=== PATIENT | female | born 2000 | race American Indian/Alaskan Native ===

== ENCOUNTER 2021-01-19 00:05 | Emergency (ER) | payer SELFPAY ==
[2021-01-19 00:13] VITALS: BP 114/74
--- NOTE | 2021-01-19 05:03 | Emergency Department Report ---
ED General Adult HPI - General Chief complaint: Chest Pain Stated complaint: CHEST PAIN/SORE THROAT/SWEATING Time Seen by Provider: 01/19/21 04:43 Source: patient Mode of arrival: Ambulatory Limitations: No Limitations - History of Present Illness Initial comments: 20-year-old female patient presents to the emergency department with complaints of chest pain, shortness of breath, night sweats, myalgias, and sore throat for 2 days. Took [id number] Tylenol and Advil with limited relief. No known sick contacts. No current steroid or antibiotic use. No recent travel. Patient has never been vaccinated. Denies fever, chills, ear pain, congestion, cough, wheezing, vomiting, diarrhea, rash, neck stiffness, headache. Denies all other complaints at this time. Severity scale (0 -10): 3 - Related Data Allergies Allergy/AdvReac Type Severity Reaction Status Date / Time No Known Allergies Allergy Unverified 01/19/21 00:13 ED Review of Systems ROS: Stated complaint: CHEST PAIN/SORE THROAT/SWEATING Other details as noted in HPI Other: GENERAL: Negative for fever, chills, weight change, anorexia, fatigue. ENT: Positive for sore throat. CARDIOVASCULAR: Positive for chest pain. PULMONARY: Positive shortness of breath. GASTROINTESTINAL: Negative for abdominal pain, nausea, vomiting, diarrhea, constipation. MUSCULOSKELETAL: Positive for myalgias. NEUROLOGICAL: Negative for headache, seizure, syncope, paresthesias, weakness. INTEGUMENTARY: Positive for diaphoresis. HEMATOLOGICAL: Negative for hemoptysis, hematemesis, hematochezia, hematuria. PSYCHIATRIC: Negative for hallucinations, suicidal ideation, homicidal ideation, anxiety, depression. ED Past Medical Hx - Past Medical History Previous Medical History?: No - Surgical History Past Surgical History?: No ED Physical Exam - General Limitations: No Limitations - Other Other exam information: General: Awake and alert. No acute distress. Head: Atraumatic, normocephalic. Eyes: EOMI. Pupils are equal and round. Normal sclera and conjunctiva. ENT: Oral mucosa is moist. Normal pharyngeal exam. Normal otoscopic exam. Neck: Supple. No lymphadenopathy. Pulmonary: No respiratory distress. Clear to auscultation bilaterally. Cardiac: Regular rate and rhythm. Pulses are palpable and equal bilaterally. No lower extremity cyanosis or edema. Skin: Warm and dry. No rashes. Abdomen: Soft, non-tender, non-protuberant. No guarding, rigidity, or rebound. Bowel sounds are normal. No organomegaly or masses noted. Back: Normal alignment. No CVA tenderness. Extremities: Symmetrical. Full range of motion intact. Neurological: Alert and oriented, appropriately interactive, no focal deficits. Psych: Cooperative. Appropriate mood and affect. Speech is evenly metered. Thoughts are logically construed. ED Course Vital Signs 01/19/21 00:12 Temperature 98.2 F Pulse Rate 96 H Respiratory 19 Rate Blood Pressure 114/74 [Right] O2 Sat by Pulse 100 Oximetry ED Medical Decision Making - EKG Data 01/19/21 06:58 EKG shows normal sinus rhythm with a ventricular rate of 86 bpm. Normal axis. Normal [place] interval. Normal QT interval. Good R wave progression. No ST segment changes. - Medical Decision Making Differential diagnosis including but not limited to: pneumonia, tuberculosis, p ertussis, pericarditis, pericardial effusion/cardiac tamponade, viral upper respiratory infection Patient presents to the emergency department with signs and/or symptoms that arise low risk clinical suspicion for pulmonary embolism. The patient has none of the following clinical criteria: age >50, heart rate >100, room air O2 saturation <94%, history of DVT/PE, recent trauma/surgery, hemoptysis, exogenous estrogen, or signs/symptoms of DVT. As a result, this patient has very low probability of pulmonary embolism and further testing is not indicated. On reevaluation, patient remains stable. She is resting comfortably. No hypoxia, no respiratory distress. EKG without acute injury pattern. Chest x- ray is negative. COVID-19 testing is currently unavailable at this facility. Rapid flu testing is not clinically indicated due to onset of symptoms >48 hours earlier. History and exam findings suggestive of viral illness. No clinical indication for further diagnostic work-up on an emergent basis at this time. Patient will be discharged home with instructions for symptomatic treatment and referred to primary care provider for close patient follow-up. Patient expressed understanding and is agreeable to plan of care. Disease transmission precautions discussed. Strict return precautions provided. Repeat exam is unremarkable and benign. History, exam, diagnostic testing, and c urrent condition do not suggest worrisome pathology to warrant further testing, continued ED treatment, admission, or surgical evaluation at this point. Given the low probability of a significant medical illness, it would be more likely to result in harm than benefit to perform further testing at this stage. Discussed findings, presumptive diagnosis, need for follow-up and specific signs/symptoms that should prompt immediate return to the emergency department. Instructions were explained in detail to the patient in addition to giving written discharge information. Patient expressed understanding and was given the opportunity to ask questions, all of which were satisfactorily answered prior to discharge home. Critical care attestation.: If time is entered above; I have spent that time in minutes in the direct care of this critically ill patient, excluding procedure time. ED Disposition Clinical Impression: Viral upper respiratory tract infection with cough Disposition: DC- TO HOME OR SELFCARE Is pt being admited?: No Does the pt Need Aspirin: No Condition: Stable Instructions: Viral Respiratory Infection Additional Instructions: Take Tylenol every 4 hours and Motrin every 8 hours as needed for pain. Use [id number] cough suppressants as needed. Honey is an excellent natural cough suppressant. Rest. Drink plenty of fluids. Wash hands frequently to prevent disease transmission. Do not share food or drinks with others. Follow-up with primary care provider this week. Call today to schedule an appointment. See referral information below. Return to the emergency department immediately for new or worsening symptoms. Referrals: CRYSTAL SALES MD [Staff Physician] - 3-5 Days [facility] [Provider Group] - 3-5 Days Forms: Work/School Release Form(ED) Time of Disposition: 07:00
--- NOTE | 2021-01-19 05:54 | XRay Report ---
. XR chest routine 2V INDICATION / CLINICAL INFORMATION: chest pain COMPARISON: None available. FINDINGS: SUPPORT DEVICES: None. HEART / MEDIASTINUM: No significant abnormality. LUNGS / PLEURA: Lungs are clear. Costophrenic sulci are sharp. No pneumothorax. ADDITIONAL FINDINGS: No significant additional findings. IMPRESSION: 1. No acute findings. Signer Name: Lai Jimenez MD Signed: 01/19/2021 5:50 AM Workstation Name: [id number]
--- NOTE | 2021-01-23 17:28 | Electrocardiograph Report ---
[facility] Test Date: 2021-01-19 Test Time: 06:52:56 Pat Name: DEANDRA WINN Department: Room: Gender: F Gym Teacher: TRUDI : 2000 Requested By: CASPER ESTRADA III Order Number: [id number] Reading MD: Justin Carmichael Measurements Intervals [place] Rate: 86 P: 78 FL: 110 QRS: 87 QRSD: 83 T: 2 QT: 348 QTc: 417 Interpretive Statements Sinus rhythm Right atrial enlargement No previous ECG available for comparison Electronically Signed On 01-23-2021 17:28:27 EDT by Justin Carmichael
== END 2021-01-19 07:17 | disposition home or self-care (01) ==
LOC: ED 00:05
DX: J06.9 Acute upper respiratory infection, unspecified (principal)
CPT/HCPCS: 71046; 93005

== ENCOUNTER 2021-01-22 00:12 | Emergency (ER) | payer SELFPAY ==
[2021-01-22 00:38] VITALS: BP 120/59
== END 2021-01-22 01:10 ==
LOC: ED 00:12
DX: F41.0 Panic disorder [episodic paroxysmal anxiety] (principal); Z53.21 Procedure and treatment not carried out due to patient leaving prior to being seen by health care provider